=== PATIENT | female | born 1995 | race Caucasian/White ===

== ENCOUNTER 2024-02-20 17:35 | Emergency (ER) ==
[~2024-02-20] VITALS: Ht 170.2 cm; Wt 92.6 kg
== END 2024-02-20 21:24 | disposition left against medical advice (07) ==
LOC: M ED 17:35
DX: Z53.21 Procedure and treatment not carried out due to patient leaving prior to being seen by health care provider (principal)

== ENCOUNTER → 2024-03-26 | Outpatient (CLI) | payer OTHER | LOC: M RAD 14:45 | PROVIDERS: ATTEND Otolaryngology | DX: H61.812 Exostosis of left external canal (principal) ==

== ENCOUNTER 2024-07-23 09:13 | Day surgery (SDC) | payer OTHER ==
[~2024-07-23] VITALS: Ht 170.2 cm; Wt 96.6 kg
[~2024-07-23 09:13] MED LIST: HYDR50TAB PO; MAG100TA PO; MULTTAB86 PO; OMEG10002 PO
[2024-07-23] MEDS ORDERED: fentaNYL 100 MCG/2 ML INJECTION As Ordered ONE (10:07)
[2024-07-23] MEDS ORDERED: propofoL 200 MG/20 ML VIAL As Ordered ONE (10:07)
[2024-07-23] MEDS ORDERED: ACETAMINOPHEN 1000MG/100ML IV BAG As Ordered ONE (10:07)
[2024-07-23] MEDS ORDERED: LIDOCAINE 2% 100MG/5ML SDV (FOR ANES.) As Ordered ONE (10:07)
[2024-07-23] MEDS ORDERED: MIDAZOLAM INJ 2MG/2ML VIAL As Ordered ONE (10:07)
[2024-07-23] MEDS ORDERED: ONDANSETRON 4MG 2ML VIAL As Ordered ONE (10:08)
[2024-07-23] MEDS: CIPRODEX OTIC SUSP 7.5ML As Ordered ONE (10:15)
[2024-07-23] MEDS: LR 1,000 ML IV SCH (10:21)
[2024-07-23] MEDS ORDERED: HYDROmorphone HCL 2MG/ML 1ML VIAL As Ordered ONE (10:44)
[2024-07-23] MEDS: OXYMETAZOLINE 0.05% NASAL SPRAY (AFRIN) As Ordered ONE (11:03)
[2024-07-23] MEDS: BACITRACIN OINTMENT 30GM TUBE As Ordered ONE (11:20)
[2024-07-23] MEDS: LIDOCAINE W/EPINEPHRINE 1% 20ML VIAL As Ordered ONE (11:20)
[2024-07-23] MEDS ORDERED: fentaNYL 100 MCG/2 ML INJECTION IV PRN (11:30)
[2024-07-23] MEDS ORDERED: ONDANSETRON 4MG 2ML VIAL IV PRN (11:30)
[2024-07-23] MEDS ORDERED: oxyCODONE 5MG TAB PO PRN (11:30)
[2024-07-23 12:45] VITALS: BP 134/88; TEMP 97.9; O2SAT 96
== END 2024-07-23 13:09 | disposition home or self-care (01) ==
LOC: M SDC 09:13
PROVIDERS: ATTEND Otolaryngology
DX: D21.0 Benign neoplasm of connective and other soft tissue of head, face and neck (principal); I10 Essential (primary) hypertension; Z79.899 Other long term (current) drug therapy
CPT/HCPCS: 69140; 81025; 88304; 88311; J0131; J1100; J1171; J2250; J2405; J3010